=== PATIENT | female | born 1960 | race African-American/Black ===

== ENCOUNTER 2020-07-30 14:51 | Emergency (ER) | payer BC ==
[~2020-07-30] VITALS: Ht 154.9 cm; Wt 86.2 kg
[2020-07-30 15:10] VITALS: BP 142/76
--- NOTE | 2020-07-30 15:45 | PHYS DOC ---
General Adult EDM: Chief Complaint: ALLERGIC REACTION HPI: HPI: Patient is a 59 year old female who presents with patient was stung by a wasp today on her right lateral foot and right fifth finger. There is a welt in both areas. She states this happened last year and she ended up having to have antibiotics for cellulitis. She does not feel like her throat is getting tight. She rates her pain from the sting a 3 out of 10. Review of Systems: Review of Systems: Constitutional: Denies fever or chills. [] Eyes: Denies change in visual acuity. [] HENT: Denies nasal congestion or sore throat. + Throat tightness [] Respiratory: Denies cough or shortness of breath. [] Cardiovascular: Denies chest pain or edema. [] GI: Denies abdominal pain, nausea, vomiting, bloody stools or diarrhea. [] : Denies dysuria. [] Musculoskeletal: Denies back pain or joint pain. [] Integument: Denies rash. +Wasp sting to her right lateral foot. + Wasp sitting to her fifth right finger [] Neurologic: Denies headache, focal weakness or sensory changes. [] Endocrine: Denies polyuria or polydipsia. [] Lymphatic: Denies swollen glands. [] Psychiatric: Denies depression or anxiety. [] Heart Score: C/O Chest Pain: No Risk Factors: Risk Factors: DM, Current or recent (<one month) smoker, HTN, HLP, family history of CAD, obesity. Risk Scores: Score 0 - 3: 2.5% MACE over next 6 weeks - Discharge Home Score 4 - 6: 20.3% MACE over next 6 weeks - Admit for Clinical Observation Score 7 - 10: 72.7% MACE over next 6 weeks - Early Invasive Strategies Current Medications: Current Medications Medications (Trade) Dose Ordered Sig/Satinder Start Time Stop Time Status Last Admin Dose Admin Diphenhydramine HCl (Benadryl) 25 mg 1X ONCE 07/30/20 15:15 07/30/20 15:16 UNV Famotidine (Pepcid Vial) 20 mg 1X ONCE 07/30/20 15:15 07/30/20 15:16 UNV Methylprednisolone Sodium Succinate (SOLU-Medrol 125MG VIAL) 125 mg 1X ONCE 07/30/20 15:15 07/30/20 15:16 UNV Physical Exam: PE: Constitutional: Well developed, well nourished, no acute distress, non-toxic appearance. [] HENT: Normocephalic, atraumatic, bilateral external ears normal, oropharynx moist, no oral exudates, nose normal. [] Eyes: PERRLA, EOMI, conjunctiva normal, no discharge. [] Neck: Normal range of motion, no tenderness, supple, no stridor. [] Cardiovascular:Heart rate regular rhythm, no murmur [] Lungs & Thorax: Bilateral breath sounds clear to auscultation [] Abdomen: Bowel sounds normal, soft, no tenderness, no masses, no pulsatile masses. [] Skin: Warm, dry, right lateral foot and fifth lateral right finger erythema, no rash. [] Back: No tenderness, no CVA tenderness. [] Extremities: No tenderness, no cyanosis, no clubbing, ROM intact, no edema. [] Neurologic: Alert and oriented X 3, normal motor function, normal sensory function, no focal deficits noted. [] Psychologic: Affect normal, judgement normal, mood normal. [] EKG: EKG: [] Radiology/Procedures: Radiology/Procedures: [] Course & Med Decision Making: Course & Med Decision Making Pertinent Labs and Imaging studies reviewed. (See chart for details) See HPI. Alert and oriented x4. Ambulatory with steady gait. Speaks in full clear sentences. Skin pink warm and dry. Pedal pulse strong and present. Throat is pink without exudates, swelling and uvula is midline. Vital signs are within normal limits. Lungs are clear to auscultation all lobes. Patient was given Solu-Medrol, Pepcid, Benadryl. She had taken 25 mg of Benadryl 2 hours prior to the event approximately 1300 today. No rash to her body. No hives. Patient states that she is feeling much better. No new or worsening symptoms. [] Dragon Disclaimer: Radha Disclaimer: This electronic medical record was generated, in whole or in part, using a voice recognition dictation system. Departure Departure Impression: Primary Impression: Allergic reaction Qualified Codes: T78.40XA - Allergy, unspecified, initial encounter Disposition: HOME / SELF CARE / HOMELESS Condition: STABLE Patient Instructions: Bee, Wasp, or Hornet Sting Additional Instructions: Take medications as prescribed and with food. Follow-up with primary care if needed. If anything worse call 911 or come back to the ED. I will give you a prescription for an EpiPen just in case he may need it later. If you have to use it only use it if your throat is closing up and you must call 911. Scripts Famotidine (PEPCID) 20 Mg Tablet 20 MG PO BID for 3 Days, #6 TAB Prov: JENS CALLEJAS APRN 07/30/20 Diphenhydramine Hcl (BENADRYL ALLERGY) 25 Mg Tablet 1 TAB PO TID for 3 Days, #9 TAB 0 Refills Prov: JENS CALLEJAS APRN 07/30/20 Cephalexin (CEPHALEXIN) 500 Mg Capsule 1 CAP PO TID, #30 CAP Prov: JENS CALLEJAS APRN 07/30/20 Methylprednisolone (MEDROL) 4 Mg Tab.ds.pk 1 PKG PO UD, #1 PKG Prov: JENS CALLEJAS APRN 07/30/20 JENS CALLEJAS APRN Jul 30, 2020 15:45
[2020-07-30] MEDS ORDERED: FAMOTIDINE 20 MG/2 ML VIAL IVP ONE (16:00)
[2020-07-30] MEDS ORDERED: methylPREDNISolone SOD SUCC PF 125 MG/2 ML VIAL. IV ONE (16:00)
[2020-07-30] MEDS ORDERED: diphenhydrAMINE 50 MG/ML VIAL IVP ONE (16:00)
[2020-07-30] MEDS ORDERED: METH4TAB2 PO (17:15)
[2020-07-30] MEDS ORDERED: CEPH500C PO (17:22)
[2020-07-30] MEDS ORDERED: DIPH25TA64 PO (17:23)
[2020-07-30] MEDS ORDERED: FAMO-63 PO (17:23)
== END 2020-07-30 17:43 | disposition home or self-care (01) ==
LOC: ER 14:51
DX: T63.461A Toxic effect of venom of wasps, accidental (unintentional), initial encounter (principal); T78.40XA Allergy, unspecified, initial encounter; Y92.89 Other specified places as the place of occurrence of the external cause
CPT/HCPCS: 96374; 96375; 99284; J1200; J2930; J3490